=== PATIENT | female | born 1965 | race Caucasian/White ===

== ENCOUNTER 2018-01-03 15:29 | Emergency (ER) | payer OTHER ==
[~2018-01-03] VITALS: Ht 154.9 cm; Wt 89.4 kg
[~2018-01-03 15:29] MED LIST: ACET-3457 PO; ASPI81EC98 PO; CELE50CA PO; FENO145T PO; GEMF600T5 PO; GLU500 PO; IMI50 PO; OMEP20EC4 PO; PIOG15TA2 PO; PROP10TA PO; TRAZ-307 PO; [UNRECOGNIZED DRUG - CODE] PO
[2018-01-03 15:50] VITALS: BP 119/74
--- NOTE | 2018-01-03 16:00 | NUR ---
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 PT CALM AND COLLECTED AT THIS TIME . DENIES N/V/D; SKIN IS PINK/WARM/DRY; AAOX4 WITH EVEN AND STEADY GAIT; LUNGS CLEAR BL; HR EVEN AND REGULAR; PT DENIES ANY FEVER, CP, SOB, OR COUGH AT THIS TIME; PATIENT STATES PAIN OF 0/10 AT THIS TIME; VSS; PATIENT POSITIONED FOR COMFORT; HOB ELEVATED; BEDRAILS UP X2; BED DOWN. ER MD MADE AWARE OF PT STATUS.
[2018-01-03] MEDS ORDERED: BEN10 PO (16:33)
[2018-01-03] MEDS ORDERED: GABA400C PO (16:33)
[2018-01-03] MEDS ORDERED: CANA300T PO (16:33)
[2018-01-03] MEDS ORDERED: SIMV20TA1 PO (16:33)
[2018-01-03] MEDS ORDERED: CARV3.12 PO (16:33)
[2018-01-03] MEDS ORDERED: HUM7525 SUBQ (16:33)
[2018-01-03] MEDS ORDERED: LISI5TAB18 PO (16:33)
[2018-01-03] MEDS ORDERED: METO-485 PO (16:33)
[2018-01-03] MEDS ORDERED: SUCR1TAB7 PO (16:33)
[2018-01-03 18:17] VITALS: BP 115/76
--- NOTE | 2018-01-03 18:18 | NUR ---
Patient discharged with v/s stable. Written and verbal after care instructions given and explained. Patient verbalized understanding. Ambulatory with steady gait. All questions addressed prior to discharge. Advised to follow up with PMD.
== END 2018-01-03 18:18 | disposition home or self-care (01) ==
LOC: MED 15:29
DX: F41.0 Panic disorder [episodic paroxysmal anxiety] (principal); Z85.3 Personal history of malignant neoplasm of breast; E11.9 Type 2 diabetes mellitus without complications; I10 Essential (primary) hypertension
CPT/HCPCS: 99284

== ENCOUNTER 2021-08-01 21:23 | Inpatient (IN) | payer OTHER, SELFPAY ==
[~2021-08-01] VITALS: Ht 154.9 cm; Wt 89.4 kg
[~2021-08-01 21:23] MED LIST changes: -ACET-3457 PO; +BEN10 PO; +CANA300T PO; +CARV3.12 PO; -CELE50CA PO; -FENO145T PO; +GABA400C PO; -GEMF600T5 PO; -GLU500 PO; +HUM7525 SUBQ; -IMI50 PO; +LISI5TAB18 PO; +METO-485 PO; -OMEP20EC4 PO; -PIOG15TA2 PO; -PROP10TA PO; +SIMV20TA1 PO; +SUCR1TAB7 PO; -TRAZ-307 PO; -[UNRECOGNIZED DRUG - CODE] PO
[2021-08-01 21:34] VITALS: BP 154/70
--- NOTE | 2021-08-01 21:36 | NUR ---
biba to bed 03
--- NOTE | 2021-08-01 21:58 | NUR ---
56 Y/O FEMALE PATIENT PRESENTS TO ED WITH GENERAL WEAKNESS. PT STATES "I HAVE BODY PAIN OF 8/10, MY BODY FEELS SO SORE, AND MY BODY STARTED SHAKING UNCONTROLLABLY AT 5PM THIS AFTERNOON." . DENIES N/V/D; SKIN IS PINK/WARM/DRY; AAOX4 WITH EVEN AND STEADY GAIT; LUNGS CLEAR BL; HR EVEN AND REGULAR; PT DENIES ANY FEVER, CP, SOB, OR COUGH AT THIS TIME; PATIENT STATES PAIN OF 8/10 AT THIS TIME; VSS; PATIENT POSITIONED FOR COMFORT; HOB ELEVATED; BEDRAILS UP X2; BED DOWN. ER MD MADE AWARE OF PT STATUS. NKA PMH: DENIES
[2021-08-01] MEDS ORDERED: NACL 0.9% 1,000 ML IV ONE (22:50)
[2021-08-01 22:55] LABS: APPEARANCE,URINE CLOUDY (CLEAR); BILIRUBIN,URINE NEGATIVE (NEGATIVE); BLOOD, URINE 1+ (NEGATIVE); COLOR,URINE YELLOW (YELLOW); LEUKOCYTE ESTERASE ,URINE 1+ (NEGATIVE); NITRITE, URINE NEGATIVE (NEGATIVE); UGLUCOSE 3+ (NEGATIVE)
[2021-08-01 22:55] LABS: BASOPHILS # (AUTO) 0.1 K/uL (0.00-0.22); BASOPHILS % (AUTO) 0.8 % (0.0-2.0); EOSINOPHILS # (AUTO) 0.1 K/uL (0-0.4); EOSINOPHILS % (AUTO) 0.8 % (0.0-4.0); HEMATOCRIT 44.6 % (36-48); HEMOGLOBIN 14.6 g/dL (12.0-16.0); LYMPHOCYTES # (AUTO) 2.6 K/uL (2.5-16.5); LYMPHOCYTES % (AUTO) 18.2 % (20.5-51.1); MEAN CORPUSCULAR HEMOGLOBIN 29 pg (27-31); MEAN CORPUSCULAR HGB CONC 33 g/dL (33-37); MEAN CORPUSCULAR VOLUME 87.7 fL (80-94); MONOCYTES # (AUTO) 0.8 K/uL (0.8-1.0); MONOCYTES % (AUTO) 5.8 % (1.7-9.3); NEUTROPHILS # (AUTO) 10.4 K/uL (1.8-7.7); NEUTROPHILS % (AUTO) 74.4 % (42.2-75.2); PLATELET COUNT (AUTO) 285 K/uL (140-450); RED BLOOD CELL COUNT(AUTO) 5.09 MIL/uL (4.20-5.40); RED CELL DISTRIBUTION WIDTH 14.2 % (11.6-13.7)
[2021-08-01] MEDS ORDERED: LORazepam 2 MG/ML VIAL IVP ONE (23:10)
[2021-08-01 23:11] LABS: WBC,URINE 20-60 /HPF (0-5)
[2021-08-01 23:11] LABS: ALBUMIN 3.3 g/dL (3.4-5.0); ANION GAP 11.5 (8-16); CARBON DIOXIDE 28.4 mmol/L (21-32); CREATININE 0.8 mg/dL (0.6-1.3); POTASSIUM 3.9 mmol/L (3.5-5.1); TOTAL BILIRUBIN 0.5 mg/dL (0.0-1.0)
[2021-08-02] MEDS ORDERED: cefTRIAXone 1,000 MG VIAL ONE (00:37)
[2021-08-02] MEDS ORDERED: MAGNESIUM OXIDE 400 MG TAB PO PRN (01:45)
[2021-08-02] MEDS ORDERED: ONDANSETRON 4 MG/2 ML VIAL IVP PRN (01:45)
[2021-08-02] MEDS ORDERED: HYDROcodone/APAP 5/325 MG 1 TAB TAB PO PRN (01:45)
[2021-08-02] MEDS ORDERED: KCL 20 MEQ/WATER INJ PREMIX 200 ML IV PRN (01:45)
[2021-08-02] MEDS: NACL 0.9% 1,000 ML IV SCH ×2 (01:45→14:44)
[2021-08-02] MEDS ORDERED: POTASSIUM CHLORIDE 10 MEQ TABER PO PRN (01:45)
[2021-08-02] MEDS ORDERED: MAG SULF 2000 MG/WATER PREMIX 50 ML IV PRN (01:45)
[2021-08-02] MEDS ORDERED: KETOROLAC 30 MG/ML VIAL IVP ONE (02:55)
[2021-08-02] MEDS ORDERED: diphenhydrAMINE 50 MG/ML VIAL IVP ONE (02:55)
--- NOTE | 2021-08-02 04:13 | NUR ---
report given to Trupti LEMON. pt currently a/o x 4, gcs 15. able to move all extremities freely.
[2021-08-02] MEDS ORDERED: NACL 0.9% 1,000 ML IV ONE (04:20)
[2021-08-02 04:33] VITALS: BP 116/89
--- NOTE | 2021-08-02 04:33 | NUR ---
RECEIVED PATIENT REPORT FROM HEAD OF LOSS PREVENTION - RAY. PATIENT CAME IN WITH GENERALIZED WEAKNESS, LOSS OF APPETITE 4 DAYS, DX: SEPSIS, UTI. WBC'S ARE ELEVATED 14.0. NO KNOWN ALLERGIES, A&O X4, SKIN IS WARM DRY AND INTACT, 2 IV SITES - LEFT HAND 22G AND LEFT FOREARM 20G, LUNG SOUNDS ARE CLEAR, PATIENT NEEDS ASSISTANCE WITH AMBULATION TO THE BATHROOM, HAS A WALKER BY BEDSIDE, DENIES PAIN AT THE MOMENT, ON ADMISSION TOOK MRSA SWAB, VITAL SIGNS STABLE, SAFETY MEASURES IN PLACE, CALL LIGHT WITHIN REACH, WILL CONTINUE TO MONITOR AND NOTIFY MD NEEDED.
--- NOTE | 2021-08-02 06:01 | NUR ---
GAVE REPORT TO SUSAN LEMON. PT ENDORSED IN STABLE CONDITION.
--- NOTE | 2021-08-02 07:10 | NUR ---
Received report from pm nurse Fanny. Pt resting in bed, awake, no c/o pain/discomfort, respirations even & nonlabored in room air. Left FA 20G IV intact with ongoing NS @ 80ml/hr. Call light within reach.
--- NOTE | 2021-08-02 07:10 | NUR ---
ENDORSED TO AM NURSE FOR CONTINUITY OF CARE. PATIENT IN STABLE CONDITION.
[2021-08-02 08:00] VITALS: BP 146/87
--- NOTE | 2021-08-02 08:45 | NUR ---
PATIENT HAS BEEN SCREENED AND CATEGORIZED LOW NUTRITION RISK. PATIENT WILL BE SEEN WITHIN 7 DAYS OF ADMISSION. 08/08/[address]
[2021-08-02] MEDS: DOCUSATE SODIUM 100 MG GELCAP PO SCH (09:04)
--- NOTE | 2021-08-02 09:30 | NUR ---
Assisted patient to bedside commode. Patient is ataxic and unsteady, able to pivot transfer from bed to commode with supervision, using fww for support. Patient voided and transferred back to bed with supervision. Bed alarm on. Call light within reach. Pt denies any pain or discomfort. Respirations even & nonlabored in room air.
[2021-08-02] MEDS: ACETAMINOPHEN 325 MG TAB PO PRN ×2 (11:25→17:23)
[2021-08-02] MEDS ORDERED: DICYCLOMINE 10 MG CAP PO PRN (12:25)
[2021-08-02] MEDS ORDERED: DEXTROSE 50% 50 ML SYR IVP PRN (12:40)
[2021-08-02] MEDS: carvediloL 3.125 MG TAB PO SCH (12:45)
[2021-08-02] MEDS: GABAPENTIN 100 MG CAP PO SCH ×2 (12:46→16:36)
[2021-08-02 16:00] VITALS: BP 157/98
[2021-08-02] MEDS: BLOOD GLUCOSE MONITORING 1 DEV DEV FS SCH ×2 (16:35→20:01)
[2021-08-02] MEDS: INSULIN LISPRO SLIDING SCALE 100 UNITS/ML VIAL SUBQ PRN ×2 (17:51→20:10)
--- NOTE | 2021-08-02 19:20 | NUR ---
RECEIVED PATIENT FROM AM SHIFT NURSE FOR CONTINUITY OF CARE. ALERT AND ABLE TO MAKE NEEDS KNOWN. RESPIRATIONS EVEN, UNLABORED. NO S/S RESPIRATORY DISTRESS. S1/S2 AUSCULTATED. MEDSURG PATIENT. NO C/O PAIN. SKIN WARM, DRY. IV SITE TO LEFT FOREARM 20G PATENT/INTACT, INFUSING FLUIDS WELL. ABDOMEN SOFT, NONTENDER, NONDISTENDED. BOWEL SOUNDS ACTIVE x4 QUADRANTS. PATIENT IS CONTINENT OF B/B. WALKER TO AMBULATE. DAUGHTER AT BEDSIDE. SAFETY PRECAUTIONS IN PLACE. PLAN OF CARE DISCUSSED. CALL LIGHT IN REACH.
[2021-08-02] MEDS ORDERED: [UNRECOGNIZED DRUG - OTHER] SUBQ SCH (21:00)
[2021-08-02] MEDS ORDERED: INSULIN LISPRO SUBQ SCH (21:00)
--- NOTE | 2021-08-02 21:30 | NUR ---
DUE MEDS GIVEN. PATIENT RESTING COMFORTABLY IN BED. NO S/S RESPIRATORY DISTRESS. NO C/O PAIN. CALL LIGHT IN REACH.
--- NOTE | 2021-08-02 23:30 | NUR ---
MADE ROUNDS. PATIENT IS ASLEEP. NO S/S RESPIRATORY DISTRESS. CALL LIGHT IN REACH.
[2021-08-03] VITALS: BP 159/92
--- NOTE | 2021-08-03 01:11 | NUR ---
PATIENT IS ASLEEP. NO S/S RESPIRATORY DISTRESS. TONY LIGHT IN REACH.
[2021-08-03] MEDS: NACL 0.9% 1,000 ML IV SCH (01:57)
--- NOTE | 2021-08-03 03:43 | NUR ---
PATIENT TRANSFERRED TO ROOM 117.
--- NOTE | 2021-08-03 05:02 | NUR ---
PATIENT RESTING COMFORTABLY IN BED. NO S/S RESPIRATORY DISTRESS. NO C/O PAIN. PATIENT IS CLEAN/DRY. CALL LIGHT IN REACH. SAFETY PRECAUTIONS IN PLACE. ISOLATION PRECAUTIONS OBSERVED BY ALL STAFF.
[2021-08-03 05:48] LABS: BASOPHILS # (AUTO) 0.1 K/uL (0.00-0.22); BASOPHILS % (AUTO) 0.9 % (0.0-2.0); EOSINOPHILS # (AUTO) 0.2 K/uL (0-0.4); HEMATOCRIT 43.7 % (36-48); HEMOGLOBIN 14.2 g/dL (12.0-16.0); LYMPHOCYTES # (AUTO) 4.2 K/uL (2.5-16.5); LYMPHOCYTES % (AUTO) 34.5 % (20.5-51.1); MEAN CORPUSCULAR HEMOGLOBIN 29 pg (27-31); MEAN CORPUSCULAR HGB CONC 33 g/dL (33-37); MEAN CORPUSCULAR VOLUME 88.7 fL (80-94); MONOCYTES # (AUTO) 1.1 K/uL (0.8-1.0); MONOCYTES % (AUTO) 8.8 % (1.7-9.3); NEUTROPHILS # (AUTO) 6.5 K/uL (1.8-7.7); NEUTROPHILS % (AUTO) 53.8 % (42.2-75.2); PLATELET COUNT (AUTO) 240 K/uL (140-450); RED BLOOD CELL COUNT(AUTO) 4.93 MIL/uL (4.20-5.40); RED CELL DISTRIBUTION WIDTH 14.3 % (11.6-13.7); WHITE BLOOD COUNT (AUTO) 12.1 K/uL (4.8-10.8)
[2021-08-03 06:09] LABS: ALBUMIN 3.1 g/dL (3.4-5.0); ANION GAP 15.8 (8-16); CARBON DIOXIDE 26.2 mmol/L (21-32); CREATININE 0.8 mg/dL (0.6-1.3); MAGNESIUM 1.8 mg/dL (1.8-2.4); TOTAL BILIRUBIN 0.3 mg/dL (0.0-1.0)
[2021-08-03] MEDS: BLOOD GLUCOSE MONITORING 1 DEV DEV FS SCH ×2 (06:31→12:40)
--- NOTE | 2021-08-03 07:33 | NUR ---
ENDORSED TO AM SHIFT NURSE FOR CONTINUITY OF CARE.
[2021-08-03 08:00] VITALS: BP 123/75
[2021-08-03] MEDS ORDERED: SUCRALFATE 1 GM TAB PO SCH (09:00)
[2021-08-03] MEDS ORDERED: ECOTRIN 81 MG TABEC PO SCH (09:00)
[2021-08-03] MEDS ORDERED: lisinopriL 20 MG TAB PO SCH (09:00)
[2021-08-03] MEDS ORDERED: ALBUTEROL (11:16)
[2021-08-03] MEDS ORDERED: INSU100I7 SUBQ (11:16)
[2021-08-03] MEDS ORDERED: GABA600T12 PO (11:16)
[2021-08-03] MEDS ORDERED: SEMA1PEN3 SUBQ (11:16)
[2021-08-03] MEDS ORDERED: TIZA4TAB4 PO (11:16)
[2021-08-03] MEDS ORDERED: BUDE0.5S PO (11:16)
[2021-08-03] MEDS ORDERED: EMPA25TA PO (11:16)
[2021-08-03] MEDS ORDERED: PANT40EC56 PO (11:16)
[2021-08-03] MEDS ORDERED: INSU100I21 SUBQ (11:16)
[2021-08-03] MEDS ORDERED: CEFU500T73 PO (11:18)
[2021-08-03] MEDS: carvediloL 3.125 MG TAB PO SCH (11:54)
[2021-08-03] MEDS: DOCUSATE SODIUM 100 MG GELCAP PO SCH (11:54)
[2021-08-03] MEDS: GABAPENTIN 100 MG CAP PO SCH ×2 (11:54→13:07)
[2021-08-03 12:45] VITALS: BP 123/75
== END 2021-08-03 15:39 | disposition home or self-care (01) | DRG 720 ==
LOC: MED 21:23 → MMU 08-02 01:48 → MTU 08-03 02:58
PROVIDERS: ADMIT Internal Medicine; ATTEND Internal Medicine
DX: A41.9 Sepsis, unspecified organism (principal); E11.42 Type 2 diabetes mellitus with diabetic polyneuropathy; I10 Essential (primary) hypertension; N30.00 Acute cystitis without hematuria; E11.65 Type 2 diabetes mellitus with hyperglycemia; R27.0 Ataxia, unspecified; R25.1 Tremor, unspecified; F41.9 Anxiety disorder, unspecified; Z20.822 Contact with and (suspected) exposure to COVID-19; Z82.49 Family history of ischemic heart disease and other diseases of the circulatory system; Z79.82 Long term (current) use of aspirin; Z79.4 Long term (current) use of insulin; Z79.899 Other long term (current) drug therapy; Z90.10 Acquired absence of unspecified breast and nipple
CPT/HCPCS: 36415; 70450; 71045; 80053; 81001; 82948; 83605; 83615; 83690; 83735; 84484; 85025; 87040; 87081; 87086; 93005; 96361; 96365; 96375; 97163-GP; 99285; J0696; J1200; J1644; J1885; J2060; J7060; Q0092; U0003